=== PATIENT | male | born 1945 | race Caucasian/White ===

== ENCOUNTER → 2017-01-11 | Outpatient (CLI) | payer MEDICARE, BC ==
[2017-01-11 13:33] LABS: INTERNATIONAL NORMALIZED RATIO 1.6 RATIO; PROTHROMBIN TIME - PATIENT 18.3 SEC (9.8-11.6)
== END ==
LOC: PLAB 12:13
DX: I48.0 Paroxysmal atrial fibrillation (principal)
CPT/HCPCS: 36415; 85610

== ENCOUNTER → 2017-01-19 | Outpatient (CLI) | payer MEDICARE, BC ==
[2017-01-19 13:51] LABS: INTERNATIONAL NORMALIZED RATIO 2.4 RATIO; PROTHROMBIN TIME - PATIENT 27.9 SEC (9.8-11.6)
== END ==
LOC: PLAB 11:28
DX: I48.0 Paroxysmal atrial fibrillation (principal)
CPT/HCPCS: 36415; 85610